=== PATIENT | female | born 1950 | race Caucasian/White ===

== ENCOUNTER 2022-04-25 12:38 | Emergency (ER) | payer OTHER ==
[~2022-04-25] VITALS: Ht 154.9 cm; Wt 100.7 kg
[2022-04-25 12:45] VITALS: BP_SYST 128
--- NOTE | 2022-04-25 12:50 | NUR ---
Patient to ER bed Tent 1 for evaluation. Side rails up.
--- NOTE | 2022-04-25 13:06 | NUR ---
Assumed care of patient who came from home c/o SOB, Covid symptoms since 04/10/22, right neck pain 07/30. Patient has a hx of TII DM, Afib, and RVR. Patient has had gallbladder removed, arm and knee surgery. Patient was not vaccinated for COVID-19, states "too political". Allergies to Arithromycin, Tertracycline, Sulfa drugs, Prednisone, Shellfish, MSG and persimmons. Patient appears in no acute distress at this time. VS WNL. Will continue to monitor and provide care as ordered.
--- NOTE | 2022-04-25 16:16 | NUR ---
JAKUB Ho at bedside examining patient.
[2022-04-25] MEDS ORDERED: ALBUTEROL SULFATE 0.083% 2.5 MG/3 ML VIAL.NEB INH ONE (17:15)
[2022-04-25] MEDS ORDERED: traMADol HCL HCL 50 MG TABLET (ULTRAM) PO ONE ×2 (17:30→22:45)
[2022-04-25 18:44] LABS: BASOPHILS # (AUTO) 0.1 K/uL (0.0-0.2); EOSINOPHILS # (AUTO) 0.1 K/uL (0.0-0.4); EOSINOPHILS % (AUTO) 1.3 % (0.0-4.0); HEMATOCRIT 42.6 % (36-48); HEMOGLOBIN 14.7 g/dL (12.0-16.0); LYMPHOCYTES # (AUTO) 0.9 K/uL (1.0-5.5); MEAN CORPUSCULAR HEMOGLOBIN 29 pg (27-31); MEAN CORPUSCULAR HGB CONC 34 % (32-36); MEAN CORPUSCULAR VOLUME 86 fL (79.0-98.0); MONOCYTES # (AUTO) 0.3 K/uL (0.0-1.0); MONOCYTES % (AUTO) 5.2 % (1.7-9.3); NEUTROPHILS % (AUTO) 78.5 % (40.0-70.0); PLATELET COUNT (AUTO) 246 K/uL (130-430); RED BLOOD CELL COUNT(AUTO) 4.98 MIL/uL (4.2-6.2); RED CELL DISTRIBUTION WIDTH 14.3 % (9.0-15.0); WHITE BLOOD COUNT (AUTO) 6.4 K/uL (4.8-10.8)
[2022-04-25 18:50] LABS: ANION GAP 11 (5-15); CALCIUM 9.3 mg/dL (8.4-11.0); CHLORIDE 103 mmol/L (98-107); CREATININE 0.79 mg/dL (0.55-1.30); GLUCOSE 113 mg/dL (70-99); POTASSIUM 3.4 mmol/L (3.5-5.1); PROTHROMBIN TIME 10.5 SECS (9.5-12.5); SODIUM SERUM 139 mmol/L (136-145); UREA NITROGEN, BLOOD 15 mg/dL (8-21)
[2022-04-25 18:52] LABS: GFR AFRICAN AMERICAN 93 mL/min (>90)
[2022-04-25 18:58] LABS: ALANINE AMINOTRANSFERASE 21 U/L (12-78); ALBUMIN 3.6 g/dL (3.4-4.8); ASPARTATE AMINOTRANSFERASE 23 U/L (10-37); TOTAL BILIRUBIN 0.8 mg/dL (0.0-1.0)
[2022-04-25] MEDS ORDERED: traMADol HCL HCL 50 MG TABLET (ULTRAM) ONE (20:56)
--- NOTE | 2022-04-25 20:59 | NUR ---
PT REFUSED ULTRAM. "I'M NOT SURE RIGHT NOW"
[2022-04-25] MEDS ORDERED: DEXAMETHASONE SOD PHOSPHATE 10 MG/ML VIAL PO ONE (22:45)
[2022-04-25] MEDS ORDERED: DEC4 PO (22:54)
[2022-04-25] MEDS ORDERED: ALBMDI INH (22:54)
[2022-04-25] MEDS ORDERED: ALBU2.5V7 INH (22:54)
[2022-04-25] MEDS ORDERED: CLIN-142 PO (22:54)
[2022-04-25] MEDS ORDERED: TRAM50TA2 PO (22:54)
[2022-04-25 23:12] VITALS: BP_SYST 117
== END 2022-04-25 23:12 | disposition home or self-care (01) ==
LOC: SED 12:38
DX: J20.8 Acute bronchitis due to other specified organisms (principal); I48.91 Unspecified atrial fibrillation; I10 Essential (primary) hypertension; E11.9 Type 2 diabetes mellitus without complications; Z88.8 Allergy status to other drugs, medicaments and biological substances; Z20.822 Contact with and (suspected) exposure to COVID-19
CPT/HCPCS: 80053; 83880; 85025; 85610; 84484; 36415; 71045; 94640; 99284; 87804 ×2; 87426; J1100; J7613